=== PATIENT | male | born 1950 ===

== ENCOUNTER 2016-09-17 13:54 | Inpatient (IN) | payer MEDICARE, OTHER ==
[~2016-09-17] VITALS: Ht 182.9 cm; Wt 132.0 kg
[2016-09-17] MEDS ORDERED: ACETAMINOPHEN 500 MG TAB PO ONE (14:15)
[2016-09-17 14:48] LABS: Basophils # (auto) 0 uL; Basophils % (auto) 0.3 % (0.0-2.0); Eosinophils # (auto) 0 uL; Eosinophils % (auto) 0.1 % (0.0-7.0); Hemoglobin 14.7 g/dL (13.5-17.5); Lymphocytes # (auto) 0.9 uL; Lymphocytes % (auto) 8.9 % (10.0-50.0); Mean Corpuscular Hemoglobin 30.1 pg (28.0-32.0); Mean Corpuscular Hgb Conc. 34.2 g/dL (32.0-36.0); Mean Platelet Volume 8.9 fL (7.4-10.4); Monocytes # (auto) 1.1 uL; Monocytes % (auto) 10.9 % (0.0-12.0); Neutrophils # (auto) 8.3 uL; Neutrophils % (auto) 79.8 % (37.0-80.0); Platelet Count (auto) 194 10^3/uL (140-450); Red Cell Distribution Width 14.4 % (11.6-16.0); White Blood Cell 10.4 10^3/uL (4.4-10.8)
[2016-09-17] MEDS ORDERED: SODIUM CHLORIDE 0.9% 1,000 ML IV ONE ×2 (14:50→15:03)
[2016-09-17 15:14] LABS: Albumin 3.4 g/dL (3.4-5.0); BUN/Creatinine Ratio 19.1; Calcium 8.5 mg/dL (8.5-10.1); Potassium 3.7 mmol/L (3.5-5.1)
[2016-09-17 15:16] LABS: Bilirubin, Total 1.1 mg/dL (0.2-1.0); Total Protein 7.4 g/dL (6.4-8.2)
[2016-09-17 17:13] LABS: Urine Bilirubin Negative (Negative); Urine Blood TRACE /uL (Negative); Urine Color Yellow (Yellow); Urine Glucose Normal (Normal); Urine Ketone Negative (Negative); Urine Mucus FEW (None Seen); Urine Nitrite Negative (Negative); Urine RBC 8 /hpf (0 - 3); Urine Squamous Epithelial Cell FEW /hpf (<5); Urine Urobilinogen Normal (Negative); Urine WBC Clumps PRESENT /hpf (None Seen)
[2016-09-17] MEDS ORDERED: cefTRIAXone 1GM/50ML D5W 50 ML IV ONE (18:15)
[2016-09-17] MEDS ORDERED: ONDANSETRON HCL 4 MG/2 ML VIAL IV PRN (20:00)
[2016-09-17] MEDS ORDERED: MORPHINE SULF INJ 2 MG/ML SYRINGE 1ML IV PRN ×2 (20:00)
[2016-09-17] MEDS ORDERED: DOCUSATE SOD 100 MG CAP PO PRN (20:00)
[2016-09-17] MEDS ORDERED: NITROGLYCERIN 0.4 MG SL TAB SL PRN (20:00)
[2016-09-17] MEDS ORDERED: VANCOMYCIN PER PHARMACY 0 MG IV SCH (20:00)
[2016-09-17] MEDS ORDERED: TEMAZEPAM 15 MG CAP PO PRN (20:00)
[2016-09-17] MEDS ORDERED: ACETAMINOPHEN 325 MG TAB PO PRN (20:00)
[2016-09-17] MEDS ORDERED: HYDROcodone-ACET 5/325MG TAB PO PRN (20:00)
[2016-09-17] MEDS ORDERED: CARISOPRODOL 350 MG TAB PO PRN (20:15)
[2016-09-17] MEDS ORDERED: ALBUTEROL SULF 2.5 MG/0.5ML(0.5%) NEB SOLN NEB PRN (20:15)
[2016-09-17] MEDS ORDERED: ACETAMINOPHEN 325 MG TAB PO ONE (20:57)
[2016-09-17 21:15] VITALS: BP 127/82
[2016-09-17 21:41] LABS: Lactic Acid w/Reflex 2.3 mmol/L (0.4-2.0)
[2016-09-17 21:55] LABS: REFLEX LACTIC ACID YES OR NO NO
[2016-09-17] MEDS ORDERED: GABAPENTIN 300 MG CAP PO SCH (22:00)
[2016-09-17] MEDS ORDERED: GABAPENTIN 100 MG CAP PO SCH (22:00)
[2016-09-18] VITALS (7 sets, daily range): BP systolic 108–126; BP diastolic 47–73
[2016-09-18] MEDS ORDERED: VANCOMYCIN 1,500 MG in D5W 5% 250 ML IV ONE ×2
[2016-09-18] MEDS ORDERED: VANCOMYCIN 1 GM/250 ML IV ONE (00:22)
[2016-09-18] MEDS ORDERED: DEXTROSE IV ONE (00:22)
[2016-09-18] MEDS: FAMOTIDINE 20 MG TAB PO SCH ×3 (00:27→20:42)
[2016-09-18] MEDS: SODIUM CHLORIDE 0.9% 1,000 ML IV SCH ×4 (06:50→20:45)
[2016-09-18] MEDS: MULTIPLE VITAMIN TAB PO SCH (08:53)
[2016-09-18] MEDS: PANTOPRAZOLE 40 MG TAB PO SCH (08:53)
[2016-09-18] MEDS ORDERED: PIPERACILLIN-TAZO 4.5GM 100 ML IV SCH (09:15)
[2016-09-18 09:48] LABS: Basophils # (auto) 0.1 uL; Basophils % (auto) 0.5 % (0.0-2.0); Eosinophils # (auto) 0 uL; Eosinophils % (auto) 0.2 % (0.0-7.0); Hematocrit 37.6 % (41.0-53.0); Hemoglobin 12.6 g/dL (13.5-17.5); Lymphocytes # (auto) 1.6 uL; Lymphocytes % (auto) 14.4 % (10.0-50.0); Mean Corpuscular Hemoglobin 29.8 pg (28.0-32.0); Mean Corpuscular Hgb Conc. 33.7 g/dL (32.0-36.0); Mean Corpuscular Volume 88.5 fL (80.0-100.0); Mean Platelet Volume 9.4 fL (7.4-10.4); Monocytes # (auto) 1.2 uL; Neutrophils # (auto) 8.1 uL; Neutrophils % (auto) 73.9 % (37.0-80.0); Platelet Count (auto) 188 10^3/uL (140-450); Red Cell Distribution Width 14.1 % (11.6-16.0)
[2016-09-18 10:05] LABS: Albumin 2.9 g/dL (3.4-5.0); BUN/Creatinine Ratio 21.2; Calcium 8.1 mg/dL (8.5-10.1); Potassium 3.5 mmol/L (3.5-5.1)
[2016-09-18 10:08] LABS: Bilirubin, Total 1.1 mg/dL (0.2-1.0); Total Protein 6.2 g/dL (6.4-8.2)
[2016-09-18] MEDS: PIPERACILLIN-TAZO 4.5GM 100 ML IV SCH ×2 (10:55→19:35)
[2016-09-18] MEDS: HYDROcodone-ACET 10/325MG TAB PO PRN ×2 (13:32→20:43)
[2016-09-18] MEDS: VANCOMYCIN 1,500 MG in D5W 5% 250 ML IV SCH (13:32)
[2016-09-18] MEDS: GABAPENTIN 100 MG CAP PO SCH ×2 (13:32→20:42)
[2016-09-18] MEDS ORDERED: GABAPENTIN 100 MG CAP PO SCH (14:00)
[2016-09-18] MEDS ORDERED: cefTRIAXone 1GM/50ML D5W 50 ML IV SCH (21:00)
[2016-09-18] MEDS ORDERED: GABAPENTIN 300 MG CAP PO SCH (22:00)
[2016-09-19] VITALS: BP 104/57
[2016-09-19] MEDS: VANCOMYCIN 1,500 MG in D5W 5% 250 ML IV SCH ×3 (00:17→21:26)
[2016-09-19] MEDS: PIPERACILLIN-TAZO 4.5GM 100 ML IV SCH ×3 (01:48→17:32)
[2016-09-19 04:00] VITALS: BP 105/50
[2016-09-19 05:45] LABS: Basophils # (auto) 0 uL; Basophils % (auto) 0.3 % (0.0-2.0); Eosinophils # (auto) 0.1 uL; Eosinophils % (auto) 1.7 % (0.0-7.0); Hematocrit 35.5 % (41.0-53.0); Hemoglobin 11.7 g/dL (13.5-17.5); Lymphocytes # (auto) 0.8 uL; Mean Corpuscular Hemoglobin 29.5 pg (28.0-32.0); Mean Corpuscular Hgb Conc. 33.1 g/dL (32.0-36.0); Mean Corpuscular Volume 89.4 fL (80.0-100.0); Mean Platelet Volume 8.9 fL (7.4-10.4); Monocytes # (auto) 0.5 uL; Neutrophils # (auto) 4.1 uL; Platelet Count (auto) 169 10^3/uL (140-450); Red Cell Distribution Width 13.9 % (11.6-16.0); White Blood Cell 5.5 10^3/uL (4.4-10.8)
[2016-09-19 06:03] LABS: Potassium 3.8 mmol/L (3.5-5.1)
[2016-09-19 06:06] LABS: BUN/Creatinine Ratio 13.9; Magnesium 2.1 mg/dL (1.6-2.6)
[2016-09-19] MEDS: GABAPENTIN 100 MG CAP PO SCH ×3 (06:09→21:25)
[2016-09-19] MEDS ORDERED: POTASSIUM CHL 20 Meq TABLET PO ONE (06:30)
[2016-09-19 08:00] VITALS: BP 107/51
[2016-09-19] MEDS: HYDROcodone-ACET 10/325MG TAB PO PRN (08:12)
[2016-09-19] MEDS: PANTOPRAZOLE 40 MG TAB PO SCH (10:12)
[2016-09-19] MEDS: MULTIPLE VITAMIN TAB PO SCH (10:12)
[2016-09-19] MEDS: FAMOTIDINE 20 MG TAB PO SCH ×2 (10:13→21:25)
[2016-09-19 12:00] VITALS: BP 97/57
[2016-09-19] MEDS: SODIUM CHLORIDE 0.9% 1,000 ML IV SCH ×3 (13:53→22:49)
[2016-09-19 16:00] VITALS: BP 112/69
[2016-09-19 20:00] VITALS: BP 107/43
[2016-09-20] VITALS: BP 112/64
[2016-09-20] MEDS: PIPERACILLIN-TAZO 4.5GM 100 ML IV SCH ×2 (01:40→10:00)
[2016-09-20 04:00] VITALS: BP 109/66
[2016-09-20 05:45] LABS: Basophils # (auto) 0 uL; Basophils % (auto) 0.5 % (0.0-2.0); Eosinophils # (auto) 0.1 uL; Eosinophils % (auto) 2.2 % (0.0-7.0); Hematocrit 34.4 % (41.0-53.0); Hemoglobin 11.7 g/dL (13.5-17.5); Lymphocytes % (auto) 28.2 % (10.0-50.0); Mean Corpuscular Hemoglobin 29.8 pg (28.0-32.0); Mean Corpuscular Hgb Conc. 33.9 g/dL (32.0-36.0); Mean Corpuscular Volume 87.8 fL (80.0-100.0); Mean Platelet Volume 8.7 fL (7.4-10.4); Monocytes # (auto) 0.6 uL; Monocytes % (auto) 16.4 % (0.0-12.0); Neutrophils % (auto) 52.7 % (37.0-80.0); Platelet Count (auto) 177 10^3/uL (140-450); White Blood Cell 3.7 10^3/uL (4.4-10.8)
[2016-09-20 06:12] LABS: BUN/Creatinine Ratio 11.4; Calcium 8.1 mg/dL (8.5-10.1); Magnesium 2.3 mg/dL (1.6-2.6); Potassium 3.8 mmol/L (3.5-5.1)
[2016-09-20] MEDS: VANCOMYCIN 1,500 MG in D5W 5% 250 ML IV SCH ×2 (06:24→12:53)
[2016-09-20] MEDS: GABAPENTIN 100 MG CAP PO SCH ×2 (06:26→13:55)
[2016-09-20] MEDS: PANTOPRAZOLE 40 MG TAB PO SCH (09:52)
[2016-09-20] MEDS: MULTIPLE VITAMIN TAB PO SCH (09:52)
[2016-09-20] MEDS: FAMOTIDINE 20 MG TAB PO SCH (09:52)
[2016-09-20 11:58] VITALS: BP 112/71
[2016-09-20] MEDS: HYDROcodone-ACET 10/325MG TAB PO PRN (13:56)
[2016-09-20 15:59] VITALS: BP 116/73
[2016-09-20 16:25] VITALS: BP 116/73
[2016-09-20 17:51] VITALS: BP 116/73
[2016-09-20] MEDS ORDERED: VANCOMYCIN 1,000 MG in D5W 5% 250 ML IV SCH (21:00)
[2016-09-20] MEDS ORDERED: VANCOMYCIN 500 MG in D5W 5% 100 ML IV SCH (22:00)
== END 2016-09-20 18:12 | disposition home or self-care (01) | DRG 871 ==
LOC: EDBD 13:54 → ER 14:25 → TELE 14:26 → DOU IN ICU 21:07
PROVIDERS: ADMIT Internal Medicine; ATTEND Family Medicine
DX: A41.9 Sepsis, unspecified organism (principal); G92 Toxic encephalopathy; J18.1 Lobar pneumonia, unspecified organism; N10 Acute pyelonephritis; E66.01 Morbid (severe) obesity due to excess calories; I10 Essential (primary) hypertension; G47.30 Sleep apnea, unspecified; G89.29 Other chronic pain; J45.909 Unspecified asthma, uncomplicated; M54.5 Low back pain; Z85.47 Personal history of malignant neoplasm of testis; Z88.2 Allergy status to sulfonamides
CPT/HCPCS: 36415; 70450; 71010; 71020; 80048; 80053; 80202; 80320; 81001; 82962; 83605; 83735; 84443; 85025; 87040; 87081; 87086; 87088; 87186; 93005; 93306; 94640; 94660; 94761; 96361; 96365; 97116; 97530; J0696; J2543; J7060